=== PATIENT | male | born 1960 | race Caucasian/White ===

== ENCOUNTER 2018-01-16 06:17 | Observation (INO) | payer BC, OTHER ==
--- NOTE | 2018-01-16 06:32 | CPEKG ---
Heart Rate: 79 RR Interval: 759 P-R Interval: 160 QRSD Interval: 80 QT Interval: 364 QTC Interval: 418 P [place]: 59 QRS [place]: 24 T Wave [place]: 42 EKG Severity - OTHERWISE NORMAL ECG - EKG Impression: SINUS RHYTHM EKG Impression: MINIMAL ST ELEVATION, INFERIOR LEADS Electronically Signed By: Arnel Salamanca 18-Jan-2018 11:55:33
[2018-01-16] MEDS ORDERED: ASPIRIN 81 MG CHEWABLE TAB PO ONE (06:34)
[2018-01-16] MEDS ORDERED: NS 1,000 ML IV ONE (06:34)
[2018-01-16] MEDS ORDERED: NITROGLYCERIN 0.4 MG BTL SL PRN (06:34)
[2018-01-16] MEDS ORDERED: NITROGLYCERIN 0.4 MG BTL SL ONE (06:35)
--- NOTE | 2018-01-16 06:40 | EDPHY ---
H & P Stated Complaint: CHEST TIGHTNESS AND DIFF BREATHING, PAIN TO BACK. THOUGHT DUE TO COFFEE Time Seen by Provider: 01/16/18 06:35 HPI/ROS: HPI CHIEF COMPLAINT: Chest tightness and back pain. HISTORY OF PRESENT ILLNESS: Patient is a 57-year-old male, presents emergency room at 6:30 a.m. In the morning by private vehicle for chest discomfort. He states since 10:00 a.m. Yesterday while drinking coffee developed some chest discomfort. It progressively got worse throughout the day. Last night it got even worse and around 4:00 a.m. He started developing some back pain. He describes it as pressure sensation in his chest. Radiates to his back. He denies any focal numbness or tingling denies focal weakness. Due to discomfort increasing over the evening and decided come to the emergency room. Upon arrival I did Greet the patient is graded ER room 12 he does complain of chest discomfort center of his chest radiates to his back. Pressure nature. Denies any vomiting. Patient is visiting from out of town. He has been in [place] for 2 weeks. He is from [facility]. Past Medical History: Takes Ritalin for attention deficit hyperactivity disorder, additionally Keppra for seizures. Past Surgical History: No recent surgery Social History: Denies drugs alcohol tobacco. Family History: Noncontributory ROS REVIEW OF SYSTEMS: A comprehensive 10 point review of systems is otherwise negative aside from elements mentioned in the history of present illness. Exam Constitutional nontoxic appearing in no acute distress, triage nursing summary reviewed, vital signs reviewed, awake/alert. Eyes normal conjunctivae and sclera, EOMI, PERRLA. HENT normal inspection, atraumatic, moist mucus membranes, no epistaxis, neck supple/ no meningismus, no raccoon eyes. Respiratory clear to auscultation bilaterally, normal breath sounds, no respiratory distress, no wheezing. Cardiovascular rate normal, regular rhythm, no murmur, no edema, distal pulses normal. Gastrointestinal soft, non-tender, no rebound, no guarding, normal bowel sounds, no distension, no pulsatile mass. Genitourinary no CVA tenderness. Musculoskeletal no midline vertebral tenderness, full range of motion, no calf swelling, no tenderness of extremities, no meningismus, good pulses, neurovascularly intact. Skin pink, warm, & dry, no rash, skin atraumatic. Neurologic awake, alert and oriented x 3, AAOx3, moves all 4 extremities equally, motor intact, sensory intact, CN II-XII intact, normal cerebellar, normal vision, normal speech. Psychiatric normal mood/affect. Heme/Lymph/Immune no lymphadenopathy. Differential diagnosis includes but is not limited to: ACS, atypical chest pain , pneumothorax, pneumonia, pulmonary embolism, aortic dissection, congestive heart failure, tumor, musculoskeletal pain, esophageal pain, GERD, peptic ulcer disease, pancreatitis Medical Decision Making: Plan for this patient IV establishment full patient monitor obtain EKG, will give him full-dose aspirin and nitroglycerin to see if this improves his chest discomfort, chest x-ray, blood work. Rule out acute coronary syndrome Re-evaluation: EKG interpretation by me on record in [facility] system. Impression time of EKG 6:31 a.m., this is sinus rhythm rate of 79, inferior leads showed minimal ST elevation but it is in a contiguous pattern of to 3 AVF concerning for ischemia. I do not appreciate any significant ST depression. Given that his EKG showing minimal elevation in inferior leads and he is actively having chest discomfort I have placed him out as a cardiac alert for ST elevation. slabbing machine operator will be notified, as well as Interventional Cardiology for further evaluation. 0647: Spoke with Dr. Huizar with Cardiology. He is song plugger for interventional. He will come and see and evaluate the patient. Patient given full-dose aspirin and nitroglycerin. 0650: Patient getting chest x-ray at this time. Will repeat EKG. 0700: ED x-ray chest one view reviewed. Negative for widened mediastinum. I do not see any pleural effusions. Cardiac silhouette is normal in size. I did repeat the EKG is the patient complains of worsening chest pain back pain. Again this shows very subtle ST elevation to 3 AVF it is not become more pronounced. The 2nd EKG is reading pericarditis however I disagree. I am still concerned for ischemia given the inferior lead changes. Patient has receive full-dose aspirin and nitroglycerin. He is currently hemodynamically stable. Source: Patient - Personal History Current Tetanus/Diphtheria Vaccine: Unsure Current Tetanus Diphtheria and Acellular Pertussis (TDAP): Unsure - Medical/Surgical History Hx Asthma: Yes Hx Chronic Respiratory Disease: No Hx Diabetes: No Hx Cardiac Disease: No Hx Renal Disease: No Hx Cirrhosis: No Hx Alcoholism: No Hx HIV/AIDS: No Hx Splenectomy or Spleen Trauma: No Other PMH: SZ, - Social History Smoking Status: Never smoked Constitutional: Initial Vital Signs Temperature (C) 36.5 C 01/16/18 06:20 Heart Rate 94 01/16/18 06:20 Respiratory Rate 18 01/16/18 06:20 Blood Pressure 137/88 H 01/16/18 06:20 O2 Sat (%) 93 01/16/18 06:20 O2 Delivery Mode Room Air O2 (L/minute) 2 Allergies/Adverse Reactions: No Known Allergies Allergy (Unverified 01/16/18 06:24) Home Medications: Medication Instructions Recorded Thiamine HCl [Vitamin B-1] 01/16/18 levETIRAcetam [Keppra] 750 mg PO BID 01/16/18 methYLPHENIDATE HCL [Ritalin 10mg 0 mg PO 01/16/18 (*)] Medical Decision Making - Data Points Laboratory Results: Laboratory Results 01/16/18 06:30 01/16/18 01/16/18 01/16/18 06:30 06:30 06:30 WBC Pending RBC Pending Hgb Pending Hct Pending MCV Pending MCH Pending MCHC Pending RDW Pending Plt Count Pending MPV Pending Neut % (Auto) Pending Lymph % (Auto) Pending Colbert % (Auto) Pending Eos % (Auto) Pending Baso % (Auto) Pending Nucleat RBC Rel Count Pending Absolute Neuts (auto) Pending Absolute Lymphs (auto) Pending Absolute Monos (auto) Pending Absolute Eos (auto) Pending Absolute Basos (auto) Pending Absolute Nucleated RBC Pending Immature Gran % Pending Immature Gran # Pending PT 12.5 SEC SEC (12.0-15.0) INR 0.91 (0.83-1.16) APTT 29.2 SEC SEC (23.0-38.0) Sodium 140 mEq/L mEq/L (135-145) Potassium 4.1 mEq/L mEq/L (3.3-5.0) Chloride 106 mEq/L mEq/L (97-110) Carbon Dioxide 24 mEq/l mEq/l (22-31) Anion Gap 10 mEq/L mEq/L (8-16) BUN 14 mg/dL mg/dL (7-23) Creatinine 1.1 mg/dL mg/dL (0.7-1.3) Estimated GFR > 60 Glucose 110 mg/dL H mg/dL (70-100) Calcium 8.6 mg/dL mg/dL (8.5-10.4) Magnesium 2.1 mg/dL mg/dL (1.6-2.3) Total Bilirubin 0.7 mg/dL mg/dL (0.1-1.4) Conjugated Bilirubin 0.4 mg/dL mg/dL (0.0-0.5) Unconjugated Bilirubin 0.3 mg/dL mg/dL (0.0-1.1) AST 53 IU/L IU/L (17-59) ALT 88 IU/L H IU/L (21-72) Alkaline Phosphatase 92 IU/L IU/L (38-126) Creatine Kinase 61 IU/L IU/L (0-224) CK-MB (CK-2) Fraction Pending Troponin I Pending Total Protein 7.1 g/dL g/dL (6.3-8.2) Albumin 4.0 g/dL g/dL (3.5-5.0) Lipase 71 IU/L IU/L (23-300) Medications Given: Nitroglycerin (Nitrostat) 0.4 mg SL Q5M PRN PRN Reason: Chest Pain Last Admin: 01/16/18 06:39 Dose: 0.4 mg Discontinued Medications Aspirin (Aspirin) 324 mg PO EDNOW ONE Stop: 01/16/18 06:35 Last Admin: 01/16/18 06:39 Dose: 324 mg Sodium Chloride (Ns) 1,000 mls @ 0 mls/hr IV EDNOW ONE; Wide Open PRN Reason: Protocol Stop: 01/16/18 06:35 Last Admin: 01/16/18 06:40 Dose: 1,000 mls Departure - Departure Disposition: [facility] Inpatient Acute Clinical Impression: STEMI (ST elevation myocardial infarction) Qualifiers: Involved coronary artery: unspecified coronary artery Qualified Code(s): I21.3 - ST elevation (STEMI) myocardial infarction of unspecified site Chest pain Qualifiers: Chest pain type: unspecified Qualified Code(s): R07.9 - Chest pain, unspecified Condition: Critical
[2018-01-16 06:50] LABS: CREATINE KINASE 61 IU/L (0-224)
[2018-01-16 06:57] LABS: INR 0.91 (0.83-1.16); PROTIME(PATIENT) 12.5 SEC (12.0-15.0)
--- NOTE | 2018-01-16 06:57 | CPEKG ---
Heart Rate: 69 RR Interval: 870 P-R Interval: 156 QRSD Interval: 78 QT Interval: 388 QTC Interval: 416 P [place]: 50 QRS [place]: 15 T Wave [place]: 39 EKG Severity - ABNORMAL ECG - EKG Impression: SINUS RHYTHM EKG Impression: ATRIAL PREMATURE COMPLEX EKG Impression: ST ELEVATION SUGGESTS PERICARDITIS Electronically Signed By: Arnel Salamanca 18-Jan-2018 11:55:17
[2018-01-16] MEDS ORDERED: LIDOCAINE 1% 300 MG/30 ML SDV ONE (07:00)
[2018-01-16] MEDS ORDERED: MIDAZOLAM 2 MG/2 ML VIAL ONE (07:00)
[2018-01-16] MEDS ORDERED: IOPAMIDOL (ISOVUE-370) 150 ML BTL IV ONE (07:00)
[2018-01-16] MEDS ORDERED: fentaNYL 100 MCG/2 ML INJ ONE (07:00)
[2018-01-16 07:02] LABS: PLATELET COUNT 120 10^3/uL (150-400)
--- NOTE | 2018-01-16 07:53 | PDPROPOC ---
Sedation Plan of Care Sedation Plan of Care: vital signs stable, mental status noted, patient educated of risks, benefits, alternatives, patient can tolerate sedation ASA Classification: ASA 2 Planned drugs: fentanyl, midazolam Mallampati Score: Class 2 Mallampati Reference Image: Patient passed 3-3-2 rule?: Yes
--- NOTE | 2018-01-16 07:56 | PDGENHP ---
History & Physical Chief Complaint: Chest pain History of Present Illness: The patient developed chest pain approximately 20 hours prior to presentation. He was having coffee yesteerday and subsequently noted substernal chest discomfort. It persisted throughout the day and evening becoming quite severe at times. There was some radiation to the shoulders and back but no associated nausea or diaphoresis. He presented to the emergency room this morning. His ECG demonstrates subtle inferior ST elevation. Pertinent Past, Social, Family History: Past medical history is notable for a seizure disorder. No hypertension, diabetes, or hyperlipidemia. No family history of CAD. He is a professor of [employer]. He has never been a smoker. Relevant Physical Exam: No scleral icterus. Membranes moist. Carotid pulses 2+ without bruits. There is no JVD. Lung blount clear to auscultation. Regular rate and rhythm with a normal S1 and S2. Abdomen soft, nontender, nondistended with normal bowel sounds. No peripheral edema. 2+ pulses in all 4 extremities.
--- NOTE | 2018-01-16 08:26 | GHP ---
[f rep st] HISTORY AND PHYSICAL DATE OF ADMISSION: 01/16/2018 REASON FOR ADMISSION: Possible inferior ST-segment elevation myocardial infarction. HISTORY: The patient is a 57-year-old male with no prior cardiac history. He is temporarily in [facility] for a work related assignment. Yesterday, he was having coffee at a local coffee shop. He subse quently developed significant substernal chest discomfort. His symptoms persisted throughout the aft ernoon and evening, becoming quite severe at times. There was radiation of discomfort to the back an d shoulders, but no associated nausea or diaphoresis. When he awoke up this morning, he still had ch est discomfort and presented to the emergency room at [facility]. His ECG demonstr ated subtle, mild inferior ST-segment elevation. PAST MEDICAL HISTORY: Negative for hypertension, hyperlipidemia, or type 2 diabetes. He has a seizu re disorder. PAST SURGICAL HISTORY: None. FAMILY HISTORY: No family history of cardiac disease. SOCIAL HISTORY: He lives in [place]. He is not a smoker. 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 REVIEW OF SYSTEMS: Apart from the chest discomfort that prompted this hospital encounter, a 10-point review was negative. PHYSICAL EXAMINATION: VITAL SIGNS: Heart rate 76 with sinus rhythm on the monitor. Blood pressure 118/75. GENERAL: This is a thin, healthy-appearing, middle-aged male in no acute distress. He is a lert and oriented x3. HEAD AND NECK: No scleral icterus. Mucous membranes moist. Carotid pulses 2 + without bruits. There is no JVD. CHEST: Lung blount clear to auscultation. CARDIAC: Regular ra te and rhythm with a normal S1 and S2. There is no murmur or gallop. ABDOMEN: Soft, nontender, non distended, with normal bowel sounds. EXTREMITIES: 2+ pulses in all 4 extremities. No peripheral ed urmila. LABORATORY: His initial troponin is negative. Sodium is 140 with potassium 4.1, BUN 14, and creatin ine 1.1. His CBC is normal. IMPRESSION: This is a 57-year-old male, who presents with chest discomfort consistent with myocardia l ischemia. He has subtle inferior ST-segment changes. PLAN: Preparations are underway to take the patient to the cardiac slab puller. Further diagnostic and therapeutic decisions await the outcome of that study. /[id number]/MODL
[2018-01-16] MEDS ORDERED: HYDROCODONE/APAP 5/325 TAB PO PRN (08:34)
[2018-01-16] MEDS ORDERED: ONDANSETRON 4 MG/2 ML VIAL IVP PRN (08:34)
[2018-01-16] MEDS ORDERED: ATROPINE SULFATE 1 MG/10 ML SYR IVP PRN (08:34)
[2018-01-16] MEDS ORDERED: ACETAMINOPHEN 325 MG TAB PO PRN (08:34)
[2018-01-16] MEDS ORDERED: NS 1,000 ML IV SCH (08:45)
--- NOTE | 2018-01-16 08:51 | PDDXCAT ---
Diagnostic Cath Note - . Date: 01/16/18 Aviation Electrical Technician: Bhupendra Indication: other (Chest pain and abnormal ECG) - Procedure Access: right groin Procedure: left heart catheterization, coronary angiography, left ventriculogram - Materials Left Heart Cath size: 6F Left Heart Cath materials: standard multipack (JL4, JR4, pigtail) - Findings-Left Heart Catheterization LM: Normal. LAD: Minimal irregularities. LCX: Minimal irregularities. RCA: Minimal irregularities. LVEF: 60% Wall motion: Normal. Complications: None Closure method: Angioseal Assessment: 1) Minimal coronary atherosclerosis. 2) Normal LV systolic function. Patient Problems: Problems Problem Status Onset Chest pain Acute STEMI (ST elevation myocardial infarction) Acute
[2018-01-16] MEDS ORDERED: SUCRALFATE 1 GM/10 ML UDCUP PO ONE (09:00)
[2018-01-16] MEDS: PANTOPRAZOLE SODIUM 40 MG TAB PO SCH (10:00)
[2018-01-16] MEDS ORDERED: KETOROLAC 30 MG/1 ML SDV IVP ONE (15:14)
[2018-01-16] MEDS ORDERED: LEVETIRACETAM 1500 MG PO SCH (21:00)
[2018-01-16] MEDS: IBUPROFEN 200 MG TAB PO PRN (21:05)
[2018-01-16] MEDS: levETIRAcetam 250 MG TAB PO SCH (21:05)
[2018-01-17] MEDS: IBUPROFEN 200 MG TAB PO PRN ×2 (03:13→09:22)
[2018-01-17] MEDS ORDERED: METHYLPHENIDATE HCL 20 MG PO SCH (08:00)
[2018-01-17] MEDS: levETIRAcetam 250 MG TAB PO SCH (09:05)
[2018-01-17] MEDS: PANTOPRAZOLE SODIUM 40 MG TAB PO SCH (09:08)
[2018-01-17] MEDS ORDERED: COLCHICINE 0.6 MG CAP/TAB PO SCH (10:45)
[2018-01-17 11:00] VITALS: BP 97/67
--- NOTE | 2018-01-17 11:00 | ASDISCHSUM ---
Discharge Information Plan Status:Home with No Needs Medically Cleared to Leave:01/17/2018 Discharge Date:01/17/2018 CM D/C Disposition:Home, Routine, Self-Care ADT D/C Disposition:Home, Routine, Self-Care Projected Discharge Date:01/17/2018 Transportation at D/C:Self Discharge Delay Reason: Follow-Up Date:01/17/2018 Discharge Slot: Final Diagnosis: Placement Information Patient Contact Information Contact Name:JUNIEYESSI Relationship:Sister Address: Work Phone: City:[place] Alternate Phone: State/[place] Code:[place] Email: Financial Information Financial Class:HMO and PPO Plans Primary Plan Desc: OUT OF STATE PPO Primary Plan Number:[id number] Secondary Plan Desc:MARIAA PPO POS HMO SIG ADM Secondary Plan Number:[id number] Assessment Information LACE LACE Length of stay for Answers: 1 day current admission Acuity / Level of Answers: No Care: Did the patient have an inpatient admission? Comorbidities - select Answers: Other Notes: seizure all that apply disorder, attention deficit hyperactivity disorder # of Emergency department Answers: 1-2 visits in the last 6 months Score: 3 Date Signed: 01/17/2018 10:58 AM Electronically Signed By:Lesvia Merritt RN Case Management Discharge Plan Note Case Management Discharge Discharge Order Complete? Answers: Yes Patient to Obtain Answers: Independently Medications Transportation Arranged Answers: Family/Friends Discharge Comments Notes: 01/17/2018 Case Management Note Pt to d/c independent with no needs per RN. Ther are no therapies ordered this admission. Pt is employed and ambulates without difficulty. Date Signed: 01/17/2018 10:59 AM Electronically Signed By:Lesvia Merritt RN Intervention Information
--- NOTE | 2018-01-17 11:15 | GDS ---
[f rep st] DISCHARGE SUMMARY REASON FOR ADMISSION: Chest pain and abnormal ECG. HOSPITAL COURSE: Please refer to my dictated history and physical, cardiac catheterization report, and echocardiography report. Briefly, the patient is a 57-year-old male with no prior cardiac history. He presented to the emergency room with chest pain approximately 20 hours duration that started after he was having coffee. In the emergency room, his ECG demonstrated very subtle inferior ST-segment elevation. He was taken to the cardiac laborer bituminous paving, where he was found to have normal left ventricular systolic function and very mild, early coronary atherosclerosis. When I spoke with him a few hours after his heart catheterization, he mentioned that his discomfort was now positional and respirophasic. A D-dimer, sedimentation rate, and CRP were sent. The D-dimer and sedimentation rate were normal. His CRP was significantly elevated at 58, consistent with a diagnosis of acute pericarditis. His echocardiogram demonstrated normal. Left ventricular systolic function, no significant valvular heart disease, and no pericardial effusion. He was started on nonsteroidal anti-inflammatories and colchicine. This morning, he feels substantially improved. His troponin was initially less than 0.02. His second troponin was 0.024 and the third was 0.064. His total cholesterol was 225 with HDL 55, LDL 141, and triglycerides 145. RECOMMENDATIONS AND DISPOSITION: The patient is discharged in stable condition. The plan will be for him to take colchicine 0.6 mg daily for 3-6 months to help reduce the risk of recurrent pericarditis. I discussed with him the fact that his catheterization did demonstrate mild atherosclerosis and that he has hyperlipidemia. He should start aspirin 81 mg daily, and he should see his PCP at home in [place] for discussion of starting a statin. DISCHARGE DIAGNOSIS: Acute pericarditis. /[id number]/MODL MTDD
--- NOTE | 2018-01-17 14:53 | ECHO ---
[email or web address] [address] Main: [phone] Fax: [email or web address] Echocardiogram Name: LONDON MALDONADO MR#: [id number] Study Date: 01/16/2018 Study Time: 11:32 AM Date of : 1960 Age: 57 year(s) Height: 177.8 cm (70 in.) Weight: 68.04 kg (150 lb.) BSA: 1.85 m2 Gender: Male Examination: Echo Indication: Chest Pain Image Quality: Adequate Contrast: Requested by: Neville Huizar BP: 112 mmHg/77 mmHg Heart Rate: Rhythm: Indication: Chest Pain Procedure Staff Road Supervisor: Kylie Urrutia [facility] Reading Physician: Neville Huizar MD Requesting Provider: Conclusions: Normal size left ventricle. EF is 64 %. No regional wall motion abnormality. Mild mitral valve regurgitation is present. Mild tricuspid regurgitation is present. Right ventricular systolic pressure measures 31mmHg. No pericardial effusion. Measurements: Chambers Valvular Assessment AV/MV Valvular Assessment TV/PV Normal Normal Normal Name Value Range Name Value Range Name Value Range Ao Madie (2D): 2.9 cm (1.4 cm-2.6 AV meanP mmHg ( - ) TR Vmax: 2.57 mm/s ( - ) cm) ZACHARY (VTI): 3.0 cm ( - ) TR PGmax: 26 mmHg ( - ) IVSd (2D): 0.9 cm (0.6 cm-1.1 MV E Vmax: 0.70 m/s ( - ) syst. PAP: 31 mmHg ( - ) cm) MV A Vmax: 0.68 m/s ( - ) PV Vmax: 1.43 m/s (0.6 m/s-0.9 LVDd (2D): 4.5 cm (4.2 cm-5.9 MV E/A: 1.03 ( - ) m/s) cm) MV PHT: 0.056 s ( - ) PV PGmax: 8 mmHg ( - ) LVDs (2D): 2.9 cm (2.1 cm-4 cm) MVA (PHT): 3.9 s ( - ) LVPWd (2D): 1.0 cm (0.6 cm-1 cm) LVOTd 2.1 cm 2.1 cm mm LVEF (MOD4): 64 % (>=55 %) RVDd(2D): 2.7 cm (1.9 cm-3.8 cmmm) Continued Measurements: Chambers Valvular Assessment AV/MV Valvular Assessment TV/PV Patient: LONDON MALDONADO Study Date: 01/16/2018 Page 1 of 2 11:32 AM Name Value Name Value Name Value LADs: 3.5 cm MV DecTime: 169 m/s CVP (est.): 5 mmHg LADs Lon.0 cm MV E' Septal: 0.11 m/s LA Area: 15.1 cm2 MV E/E' Septal: 6.10 LA Volume: 34 ml MV E/E' Lateral: 4.40 LA Volume Index: 18.4 ml/m2 RA Area: 14.6 cm2 Additional Vessels Name Value Ao Ascendin.6 cm Findings: Left Ventricle: Normal size left ventricle. No LV hypertrophy. Normal global systolic LV function. EF is 64 %. No regional wall motion abnormality. Unable to assess diastolic dysfunction. Right Ventricle: Normal size right ventricle. Normal RV function. Left Atrium: The left atrium is normal in size. Right Atrium: The right atrium is normal in size. Mitral Valve: The mitral valve is normal in appearance and function. Mild mitral valve regurgitation is present. No mitral stenosis is present. Aortic Valve: The aortic valve is tri-leaflet. There is no significant aortic valve regurgitation. No aortic valve stenosis is present. Tricuspid Valve: The tricuspid valve is normal in appearance and function. Mild tricuspid regurgitation is present. The pulmonary artery pressure is normal. Right ventricular systolic pressure measures 31mmHg. Pulmonic Valve: The pulmonic valve is normal in appearance and function. There is no pulmonic regurgitation seen. Aorta: The aorta is normal. Normal size aortic root measuring 2.9 cm. Normal size ascending aorta measuring 2.6 cm. IVC: Not well seen. Pericardium: No pericardial effusion. No pleural effusion. (No Signature Object) Patient: LONDON MALDONADO Study Date: 01/16/2018 Page 2 of 2 11:32 AM [id number]
== END 2018-01-17 11:45 | disposition home or self-care (01) ==
LOC: INTOOBSV 06:51 → F2W 09:22
PROVIDERS: ADMIT Internal Medicine Interventional Cardiology; ATTEND Internal Medicine Interventional Cardiology
DX: R07.9 Chest pain, unspecified (principal); R94.31 Abnormal electrocardiogram [ECG] [EKG]; I25.10 Atherosclerotic heart disease of native coronary artery without angina pectoris
CPT/HCPCS: 71045; 93005; 93306; 93458; G0378; C1760; J1644; J1885; J2250; J3010; Q9967